=== PATIENT | female | born 1975 | race Caucasian/White ===

== ENCOUNTER 2017-10-20 13:16 | Inpatient (IN) | payer OTHER ==
--- NOTE | 2017-10-20 15:50 | EDPHY ---
H & P Time Seen by Provider: 10/20/17 15:02 HPI/ROS: HPI Bipolar, manic. 42-year-old female by private vehicle. This patient has a history of PTSD and bipolar disorder. She was recently admitted to the [facility] in [place] and was there for approximately 2 weeks. She was discharged about 3 days ago. She was prescribed her standard psychiatric medications but has not been able to fill these prescriptions at the pharmacy she was instructed to go to. She drove from [place] up to [place] because the pharmacist told her she could get good care here. She currently is not tied in with our system in [place]. She states that she is not taking her medications in 3 days. She denies suicidal or homicidal thoughts. ROS: Constitutional: No fever, no chills. No weakness. Eyes: No discharge. No changes in vision. ENT: No sore throat. No nasal congestion or rhinorrhea. Respiratory: No cough. No shortness of breath. Cardiac: No chest pain, no palpitations. Gastrointestinal: No abdominal pain, no vomiting, no diarrhea. Genitourinary: No hematuria. No dysuria or increased frequency with urination. Musculoskeletal: No back pain. No neck pain. No myalgias or arthralgias. Skin: No rashes. Neurological: No headache. No focal weakness or altered sensation. Past medical history: Bipolar, PTSD, major depression, prior suicide attempts. Social history: She is originally from [place]. She has an 18-year-old son. She smokes occasionally. She denies alcohol. Physical Exam: General Appearance: Alert, very manic, pressured speech, tangential thoughts. Needs constant redirection, then this patient is responding to questions appropriately and in full sentences. This patient appears well-hydrated and well-nourished. Eyes: Pupils equal and round no pallor or injection. No lid edema, erythema or injection. Respiratory: There are no retractions, lungs are clear to auscultation with good air movement bilaterally. Cardiovascular: Regular rate and rhythm. No murmur. Gastrointestinal: Moderately obese habitus. Abdomen is soft and nontender, no masses, bowel sounds normal. No focal tenderness at McBurney's point. No Douglas sign. Neurological: Motor sensory function is grossly intact. Cranial nerves are normal. Gait is normal. Skin: Warm and dry, no rashes. Musculoskeletal: Neck is supple and nontender. Extremities are symmetrical. All joints range without pain or impingement. Psychiatric: No agitation. No depression. Database: EKG: Imaging: Procedures: Emergency department course: Triage vital signs reviewed. She is moderately hypertensive. Tachycardic at 120. Vital signs otherwise normal. After my evaluation she was placed on a detainer secondary to her manic state/acute psychosis. We have obtained her medication list and will medicate her appropriately. Behavioral Health is aware. Appropriate blood work sent. 5:30 p.m., patient evaluated by TLC. They will admit this patient for stabilization on her medications. 6:30 p.m., patient placed on an M1 hold officially. Waiting admission. 10:00 p.m., the patient has been accepted for transfer to [address] [place] [address]. Accepting physician is the on-call psychiatrist. I have filled out the appropriate transfer paperwork. The patient's remaining emergency department course under my care has been unremarkable. The patient was transferred in stable condition to [address] [place] [address]. Differential Diagnosis: The differential diagnosis on this patient includes but is not limited to bipolar with acute manic state, acute psychosis, sympathomimetic toxidrome. This represents a partial list of diagnoses considered. These considerations are based on history, physical exam, past history, reassessment and diagnostic testing. Smoking Status: Never smoked Constitutional: Initial Vital Signs Temperature (C) 37.0 C 10/20/17 14:08 Heart Rate 120 H 10/20/17 14:08 Respiratory Rate 24 H 10/20/17 14:08 Blood Pressure 150/81 H 10/20/17 14:08 O2 Sat (%) 94 10/20/17 14:08 O2 Delivery Mode Room Air Allergies/Adverse Reactions: haloperidol [From Haldol] Allergy (Verified 10/20/17 14:12) lamotrigine [From Lamictal] Allergy (Verified 10/20/17 14:12) morphine Allergy (Verified 10/20/17 14:13) Home Medications: Medication Instructions Recorded Gabapentin 800 mg PO DAILY 10/20/17 Gabapentin [Gabapentin 800 mg] 1,200 mg PO BID@14,21 10/20/17 Lidocaine 5% [Lidocaine 5% Oint] 1 avani TP Q6 PRN 10/20/17 Loratadine [Claritin 10 mg] 10 mg PO DAILY 06/15/18 Lurasidone HCl [Latuda] 40 mg PO DAILY@18 10/20/17 Prazosin HCl 4 mg PO HS 10/20/17 SUMAtriptan [Imitrex 50 MG (*)] 50 mg PO Q2H PRN 10/20/17 Topiramate [Topamax 100MG (*)] 50 mg PO BID 10/20/17 busPIRone [Buspar (*)] 15 mg PO TID 10/20/17 traZODone [traZODONE 100MG (*)] 100 mg PO HS PRN 10/20/17 Medical Decision Making - Data Points Laboratory Results: Laboratory Results 10/20/17 16:05 10/20/17 16:05 10/20/17 10/20/17 10/20/17 16:05 16:05 16:05 WBC 8.36 10^3/uL 10^3/uL (3.80-9.50) RBC 3.84 10^6/uL L 10^6/uL (4.18-5.33) Hgb 11.4 g/dL L g/dL (12.6-16.3) Hct 33.8 % L % (38.0-47.0) MCV 88.0 fL fL (81.5-99.8) MCH 29.7 pg pg (27.9-34.1) MCHC 33.7 g/dL g/dL (32.4-36.7) RDW 13.4 % % (11.5-15.2) Plt Count 283 10^3/uL 10^3/uL (150-400) MPV 10.0 fL fL (8.7-11.7) Neut % (Auto) 67.6 % % (39.3-74.2) Lymph % (Auto) 21.2 % % (15.0-45.0) Pitt % (Auto) 9.2 % % (4.5-13.0) Eos % (Auto) 1.6 % % (0.6-7.6) Baso % (Auto) 0.2 % L % (0.3-1.7) Nucleat RBC Rel Count 0.0 % % (0.0-0.2) Absolute Neuts (auto) 5.65 10^3/uL 10^3/uL (1.70-6.50) Absolute Lymphs (auto) 1.77 10^3/uL 10^3/uL (1.00-3.00) Absolute Monos (auto) 0.77 10^3/uL 10^3/uL (0.30-0.80) Absolute Eos (auto) 0.13 10^3/uL 10^3/uL (0.03-0.40) Absolute Basos (auto) 0.02 10^3/uL 10^3/uL (0.02-0.10) Absolute Nucleated RBC 0.00 10^3/uL 10^3/uL (0-0.01) Immature Gran % 0.2 % % (0.0-1.1) Immature Gran # 0.02 10^3/uL 10^3/uL (0.00-0.10) Sodium 143 mEq/L mEq/L (135-145) Potassium 3.8 mEq/L mEq/L (3.3-5.0) Chloride 109 mEq/L mEq/L (97-110) Carbon Dioxide 17 mEq/l L mEq/l (22-31) Anion Gap 17 mEq/L H mEq/L (8-16) BUN 9 mg/dL mg/dL (7-23) Creatinine 0.9 mg/dL mg/dL (0.6-1.0) Estimated GFR > 60 Glucose 93 mg/dL mg/dL (70-100) Calcium 9.1 mg/dL mg/dL (8.5-10.4) Beta HCG, Qual NEGATIVE Urine Opiates Screen Urine Barbiturates Ur Phencyclidine Scrn Ur Amphetamine Screen U Benzodiazepines Scrn Urine Cocaine Screen U Marijuana (THC) Screen Ethyl Alcohol < 10 mg/dL mg/dL (0-10) 10/20/17 16:00 WBC RBC Hgb Hct MCV MCH MCHC RDW Plt Count MPV Neut % (Auto) Lymph % (Auto) Pitt % (Auto) Eos % (Auto) Baso % (Auto) Nucleat RBC Rel Count Absolute Neuts (auto) Absolute Lymphs (auto) Absolute Monos (auto) Absolute Eos (auto) Absolute Basos (auto) Absolute Nucleated RBC Immature Gran % Immature Gran # Sodium Potassium Chloride Carbon Dioxide Anion Gap BUN Creatinine Estimated GFR Glucose Calcium Beta HCG, Qual Urine Opiates Screen NEGATIVE (NEGATIVE) Urine Barbiturates NEGATIVE (NEGATIVE) Ur Phencyclidine Scrn NEGATIVE (NEGATIVE) Ur Amphetamine Screen NEGATIVE (NEGATIVE) U Benzodiazepines Scrn NEGATIVE (NEGATIVE) Urine Cocaine Screen NEGATIVE (NEGATIVE) U Marijuana (THC) Screen NEGATIVE (NEGATIVE) Ethyl Alcohol Medications Given: Trazodone HCl (Trazodone) 100 mg PO HS ALBER Stop: 04/18/18 20:59 Last Admin: 10/20/17 16:12 Dose: 100 mg Discontinued Medications Gabapentin (Neurontin) 800 mg PO EDNOW ONE Stop: 10/20/17 15:56 Last Admin: 10/20/17 16:12 Dose: 800 mg Departure - Departure Disposition: [facility] IP Clinical Impression: Bipolar 1 disorder, Manic behavior Referrals: NONE *PRIMARY CARE P,. [Primary Care Provider] - As per Instructions
[2017-10-20] MEDS ORDERED: GABAPENTIN 100 MG CAP PO ONE (15:55)
[2017-10-20] MEDS ORDERED: traZODone 50 MG TAB ONE (15:56)
[2017-10-20 16:11] LABS: PLATELET COUNT 283 10^3/uL (150-400)
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
[2017-10-20] MEDS ORDERED: traZODone 100 MG TAB PO SCH (21:00)
--- NOTE | 2017-10-20 21:08 | ASMTTCLDSP ---
TLC Discharge Disposition Disposition: Answers: Admit Disposition Notes: Notes: In consultation with ED physician, Santos Vásquez, and on-call psychiatrist, Scott Black MD, both concurred that pt does appear to meet 27-65 criteria requiring inpatient hospitalization as pt does appear to be gravely disabled due to a mental illness condition. Discharge Concerns/Recommendations: Notes: PT will be admitted to and per MA request will be notified at with PT's dispo and placement. Was patient given the Answers: Yes Inpatient [facility] Prohibited Belongings List while in the ED? For inpatient Scott Black MD admission, the following psychiatrist agreed to accept patient for admission to [facility] ([facility]): Type of Hold: Answers: M1/72-hour Hold Hold initiated by: Answers: ED Physician Date Signed: 10/20/2017 09:07 PM Electronically Signed By:Gopal Beyer
[2017-10-20] MEDS ORDERED: LORazepam 1 MG TAB PO ONE (22:00)
[2017-10-20] MEDS ORDERED: NICOTINE POLACRILEX 2 MG GUM B PRN (23:27)
[2017-10-20] MEDS ORDERED: MAG HYDROX/AL HYDROX/SIMETH 30 ML UDCUP PO PRN (23:27)
[2017-10-20] MEDS ORDERED: ACETAMINOPHEN 325 MG TAB PO PRN (23:27)
[2017-10-20] MEDS ORDERED: MAGNESIUM HYDROXIDE 30 ML UDCUP PO PRN (23:27)
[2017-10-20] MEDS ORDERED: MELATONIN 3 MG TAB PO PRN (23:45)
[2017-10-21] MEDS ORDERED: GABAPENTIN 400 MG CAP PO ONE (01:00)
[2017-10-21] MEDS ORDERED: PRAZOSIN HCL 1 MG CAP PO ONE (01:00)
[2017-10-21] MEDS: NAPROXEN SODIUM 220 MG TAB PO PRN ×2 (01:03→14:15)
[2017-10-21] MEDS: TOPIRAMATE 100 MG TAB PO SCH ×2 (08:22→19:36)
[2017-10-21] MEDS: GABAPENTIN 400 MG CAP PO SCH ×3 (08:22→19:37)
[2017-10-21] MEDS: CETIRIZINE 10 MG TAB PO SCH (08:23)
[2017-10-21] MEDS: busPIRone 15 MG TAB PO SCH ×3 (08:23→19:41)
--- NOTE | 2017-10-21 13:30 | PDHOSCONS ---
History and Physical - Chief Complaint medical management - History of Present Illness 42-year-old female with a history of PTSD and bipolar disorder who was recently admitted to the [place] in [place] and was there for approximately 2 weeks. She was discharged about 3 days ago. She was prescribed her standard psychiatric medications but has not been able to fill these prescriptions at the pharmacy she was instructed to go to. She presented to the E.D. yesterday and given her manic sx's an M1 hold was placed and she was admitted to behavioral health. In the E.D. she was noted to have HTN and Tachycardia. Past medical history: Bipolar, PTSD, major depression, prior suicide attempts. Social history: She is originally from [place]. She has an 18-year-old son. She smokes occasionally. She denies alcohol. FmHx: non contributory History Information - Allergies/Home Medication List Allergies/Adverse Reactions: haloperidol [From Haldol] Allergy (Verified 10/20/17 14:12) lamotrigine [From Lamictal] Allergy (Verified 10/20/17 14:12) morphine Allergy (Verified 10/20/17 14:13) Home Medications: Gabapentin 800 mg PO DAILY 10/20/17 [Last Taken Unknown] Gabapentin [Gabapentin 800 mg] 1,200 mg PO BID@10/20/17 [Last Taken Unknown] Lidocaine 5% [Lidocaine 5% Oint] 1 avani TP Q6 PRN 10/20/17 [Last Taken Unknown] Loratadine [Claritin 10 mg] 10 mg PO DAILY 10/20/17 [Last Taken Unknown] Lurasidone HCl [Latuda] 40 mg PO DAILY@18 10/20/17 [Last Taken Unknown] Prazosin HCl 4 mg PO HS 10/20/17 [Last Taken Unknown] SUMAtriptan [Imitrex 50 MG (*)] 50 mg PO Q2H PRN 10/20/17 [Last Taken Unknown] Topiramate [Topamax 100MG (*)] 50 mg PO BID 10/20/17 [Last Taken Unknown] busPIRone [Buspar (*)] 15 mg PO TID 10/20/17 [Last Taken Unknown] traZODone [traZODONE 100MG (*)] 100 mg PO HS PRN 10/20/17 [Last Taken Unknown] I have personally reviewed and updated: medical history, social history - Social History Smoking Status: Never smoked Review of Systems Review of Systems: ROS: 10pt was reviewed & negative except for what was stated in HPI & below Physical Exam Physical Exam: Temp Pulse Resp BP Pulse Ox 36.6 C 82 16 126/86 H 99 10/20/17 23:08 10/20/17 23:08 10/20/17 23:08 10/20/17 23:08 10/20/17 23:08 Constitutional: no apparent distress Eyes: PERRL, EOMI Ears, Nose, Mouth, Throat: moist mucous membranes, hearing normal Cardiovascular: regular rate and rhythym, No edema Respiratory: no respiratory distress, no rales or rhonchi Gastrointestinal: normoactive bowel sounds Skin: warm Neurologic: AAOx3 Psychiatric: anxious, No interacting appropriately Lymph, Heme, Immunologic: No petechiae Lab Data & Imaging Review 10/20/17 16:05 10/20/17 16:05 WBC 8.36 10^3/uL (3.80-9.50) 10/20/17 16:05 RBC 3.84 10^6/uL (4.18-5.33) L 10/20/17 16:05 Hgb 11.4 g/dL (12.6-16.3) L 10/20/17 16:05 Hct 33.8 % (38.0-47.0) L 10/20/17 16:05 MCV 88.0 fL (81.5-99.8) 10/20/17 16:05 MCH 29.7 pg (27.9-34.1) 10/20/17 16:05 MCHC 33.7 g/dL (32.4-36.7) 10/20/17 16:05 RDW 13.4 % (11.5-15.2) 10/20/17 16:05 Plt Count 283 10^3/uL (150-400) 10/20/17 16:05 MPV 10.0 fL (8.7-11.7) 10/20/17 16:05 Neut % (Auto) 67.6 % (39.3-74.2) 10/20/17 16:05 Lymph % (Auto) 21.2 % (15.0-45.0) 10/20/17 16:05 [place] % (Auto) 9.2 % (4.5-13.0) 10/20/17 16:05 Eos % (Auto) 1.6 % (0.6-7.6) 10/20/17 16:05 Baso % (Auto) 0.2 % (0.3-1.7) L 10/20/17 16:05 Nucleat RBC Rel Count 0.0 % (0.0-0.2) 10/20/17 16:05 Absolute Neuts (auto) 5.65 10^3/uL (1.70-6.50) 10/20/17 16:05 Absolute Lymphs (auto) 1.77 10^3/uL (1.00-3.00) 10/20/17 16:05 Absolute Monos (auto) 0.77 10^3/uL (0.30-0.80) 10/20/17 16:05 Absolute Eos (auto) 0.13 10^3/uL (0.03-0.40) 10/20/17 16:05 Absolute Basos (auto) 0.02 10^3/uL (0.02-0.10) 10/20/17 16:05 Absolute Nucleated RBC 0.00 10^3/uL (0-0.01) 10/20/17 16:05 Immature Gran % 0.2 % (0.0-1.1) 10/20/17 16:05 Immature Gran # 0.02 10^3/uL (0.00-0.10) 10/20/17 16:05 Sodium 143 mEq/L (135-145) 10/20/17 16:05 Potassium 3.8 mEq/L (3.3-5.0) 10/20/17 16:05 Chloride 109 mEq/L (97-110) 10/20/17 16:05 Carbon Dioxide 17 mEq/l (22-31) L 10/20/17 16:05 Anion Gap 17 mEq/L (8-16) H 10/20/17 16:05 BUN 9 mg/dL (7-23) 10/20/17 16:05 Creatinine 0.9 mg/dL (0.6-1.0) 10/20/17 16:05 Estimated GFR > 60 10/20/17 16:05 Glucose 93 mg/dL (70-100) 10/20/17 16:05 Calcium 9.1 mg/dL (8.5-10.4) 10/20/17 16:05 Beta HCG, Qual NEGATIVE 10/20/17 16:05 Urine Opiates Screen NEGATIVE (NEGATIVE) 10/20/17 16:00 Urine Barbiturates NEGATIVE (NEGATIVE) 10/20/17 16:00 Ur Phencyclidine Scrn NEGATIVE (NEGATIVE) 10/20/17 16:00 Ur Amphetamine Screen NEGATIVE (NEGATIVE) 10/20/17 16:00 U Benzodiazepines Scrn NEGATIVE (NEGATIVE) 10/20/17 16:00 Urine Cocaine Screen NEGATIVE (NEGATIVE) 10/20/17 16:00 U Marijuana (THC) Screen NEGATIVE (NEGATIVE) 10/20/17 16:00 Ethyl Alcohol < 10 mg/dL (0-10) 10/20/17 16:05 Assessment & Plan Assessment: Bipolar 1 disorder (Acute) Manic behavior (Acute) HTN Migraines Metabolic Acidosis Right knee injury, present on admission, cont with brace. MRI as an outpatient Plan: Psych mgmt per primary repeat labs in am. Thank you for this consult, we will cont to follow Plan: #Diana with psychosis possible in a pt with chronic Bipolar disorder -mgmt per psych #HTN: BP is now better -monitor for now #Tachcyardia -resolved #Anemia -recheck labs in a.m #Metabolic Acidosis -recheck labs in a.m. #Migraines Plan: Per above labs in a.m. current meds reviewed, continue as is. Thank you for this consultation, we will follow along with you.
[2017-10-21] MEDS: SUMAtriptan 50 MG TAB PO PRN ×2 (14:15→16:16)
--- NOTE | 2017-10-21 15:27 | ASMTBHMTP ---
Master Treatment Plan Master Treatment Plan Answers: Mood Instability with for: Psychosis Date: 10/21/2017 Diagnosis on Admission: Bipolar I Disorder Expected length of stay: 5-7 days. Reason for admission: Notes: Patient is a 42 year old female. Patient is estranged from her family, a disabled Vetrian with PTSD adn Bipolar I Disorder with a history of suicide attempts. Patient self presented to the [place] [facility] with manic symptoms, tangential thinking, flight of ideas and paranoid. Patient's stated presenting problems: Notes: Because I did't have my medications. Patient was feeling overwhelmed with her situation after leaving the [facility] where she was living and getting services. Patient's goals for treatment: Notes: Mood Stability, medication magangement, sleeping 6-8 hours a night, attending groups and have a good discharge plan. Patient's strengths: Notes: Patient likes to read and educate herself." Identify supports outside of hospital: Notes: I have none, I have no living relatives. Patient reports that she was raised by her grandmother and she is now not around to care for her. Discharge criteria: Notes: Patient will demonstrate mood stability by discharge. Initial disposition plan/considerations: Notes: Patient would like to get services at [facility] in [place]. Patient has SSDI and [facility]. Master Treatment Plan Required Signatures Psychiatrist signature: Answers: Scott Black MD: RN on-shift signature: Answers: RN: Patient signature: Answers: Patient: Date Signed: 10/21/2017 03:26 PM Electronically Signed By:Blanca Leslie
--- NOTE | 2017-10-21 15:31 | ASMTBHDC ---
Notes Note: Notes: Patient has been out in the milieu, staff reports that she is still a 5/10 on the suicide ideation scale. Patient slept 6 hours last night. Patient continues to be tangential, have flight of ideas, but is easily redirected. Patient's hold is up on 10/23/2017 at 18:07. Date Signed: 10/21/2017 03:30 PM Electronically Signed By:Blanca Leslie
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
[2017-10-21] MEDS: LURASIDONE HCL 40 MG TAB PO SCH (16:15)
[2017-10-21] MEDS: PRAZOSIN HCL 1 MG CAP PO SCH (19:37)
[2017-10-21] MEDS: LORazepam 0.5 MG TAB PO PRN (22:39)
[2017-10-21] MEDS: traZODone 100 MG TAB PO PRN (22:44)
[2017-10-22] MEDS: OLANZapine DISINTEGR 5 MG TAB PO PRN ×2 (02:38→15:40)
[2017-10-22] MEDS: LORazepam 0.5 MG TAB PO PRN ×3 (02:38→13:13)
[2017-10-22] MEDS: NAPROXEN SODIUM 220 MG TAB PO PRN ×3 (06:36→15:40)
[2017-10-22] MEDS: GABAPENTIN 400 MG CAP PO SCH ×3 (08:13→19:47)
[2017-10-22] MEDS: TOPIRAMATE 100 MG TAB PO SCH ×2 (08:13→19:47)
[2017-10-22] MEDS: busPIRone 15 MG TAB PO SCH ×3 (08:13→19:48)
[2017-10-22] MEDS: CETIRIZINE 10 MG TAB PO SCH (08:13)
[2017-10-22] MEDS: SUMAtriptan 50 MG TAB PO PRN ×3 (13:13→20:32)
--- NOTE | 2017-10-22 14:50 | SOAPPROG ---
SOAP Progress Note Assessment/Plan: Assessment: 42 yo with h/o tate, anxiety and possible PTSD. She was receiving services through [facility] in [place], but claims she fell on their property and the staff are "mad" at her and don't want to treat her anymore. She presented to ED in [place] after not taking meds x 3 days and was admitted to on M1 for grave disability d/t manic sxs. Plan: 10/22/17 14:41 1. Patient reports "a lot of anxiety" despite taking 3 different psychotropic meds for anxiety. 2. Patient had "bad dreams" that kept her awake most of the night. 3. Patient says there is "a lot going on in my life right now" that is making her anxiety and insomnia worse. 4. Patient still paranoid that [facility] doesn't want to help her and is "mad" at her. She wants to get connected with services in [place], even though she knows there are no services. 5. Wants to continue on her current meds. MD did discuss the risks, SE's and potential adverse drug interactions from the multiple psychotropics meds she is taking. Patient verbalized her understanding of the risks associated with imprudent polypharmacy. MD reminded patient that many of her meds target the same set of symptoms. MD advised consolidating some meds and optimizing treatment with fewer agents and possibly adding some non-pharmacologic interventions, especially therapy, exercise, biofeedback and/or relaxation techniques to cope with anxiety and improve her ability to tolerate stress. Patient said she didn't want to make any meds changes at this time, but would be willing to consider therapy as an outpatient. 6. Patient took Aleve, Imitrex yesterday for back pain, knee pain and HUYNH. She did not complain of pain sxs or HUYNH when MD spoke to her today. 7. Patient needs f/u services. She will also need housing assistance referrals. Subjective: Met with patient, reviewed chart and d/w staff. Patient very polite, pleasant and cooperative. She continues to exhibit pressured speech and endorse racing thoughts. She slept 3.5 hrs last night. Staff report she had increased goal- directed activity, including showering, attending to hygiene. Patient perseverates on how she was treated at [facility] and by the staff at [facility]. She claims they "didn't help her" and were treating her badly b/c she fell on their property, but can't provide any details of why this was the case. Patient denies any SI/HI, no intent or plan to hurt herself or anyone else. She denies hallucinations. Objective: Vital Signs Temp Pulse Resp BP Pulse Ox 36.3 C 98 16 130/80 H 97 10/22/17 02:10/22/17 02:17 10/22/17 02:17 10/22/17 02:10/22/17 02:17 MSE: Affect: Anxious, irritable when talking about [facility] Mood: "So-so" TP: Tangential, perseverative TC: Denies any SI/HI, no AH/VH, some paranoid delusions about [facility] Insight/Judgment: Poor - Time Spent With Patient Time Spent With Patient: 20" - Pending Discharge Pending Discharge Within 24 Hours: No Pending Discharge Within 48 Hours: No ICD10 Worksheet Patient Problems: Problems Problem Status Onset Bipolar 1 disorder Acute Manic behavior Acute
[2017-10-22] MEDS: LURASIDONE HCL 40 MG TAB PO SCH (15:40)
[2017-10-22] MEDS: traZODone 100 MG TAB PO PRN (19:47)
[2017-10-22] MEDS: PRAZOSIN HCL 1 MG CAP PO SCH (19:47)
[2017-10-23] MEDS: LORazepam 0.5 MG TAB PO PRN ×3 (05:10→16:04)
[2017-10-23] MEDS: TOPIRAMATE 100 MG TAB PO SCH ×2 (08:29→21:11)
[2017-10-23] MEDS: busPIRone 15 MG TAB PO SCH (08:29)
[2017-10-23] MEDS: CETIRIZINE 10 MG TAB PO SCH (08:29)
[2017-10-23] MEDS: GABAPENTIN 400 MG CAP PO SCH (08:29)
--- NOTE | 2017-10-23 09:32 | PDMN ---
Medical Necessity Medical necessity: [id number]- IP other psychotic disorder- delusional disorders - paranoia- 3 days- PT on M1 hold for grave disability , d/t manic sxs. PT with hx of tate, anxiety, PTSD.
--- NOTE | 2017-10-23 15:35 | SOAPPROG ---
SOAP Progress Note Assessment/Plan: Assessment: Bipolar I disorder. Current tate. No improvement noted. (see subjective/ objective note). Patient could benefit from continued inpatient hospitalization for crisis stabilization, safety, and medication evaluation. Plan: Review psychotropic medication treatment informed consent and recommendations. After reviewing risk and benefits, patient agrees to continue medications with the following changes. Medication changes include increase Latuda to 80 mg po QD, increase Buspar to 20 mg po TID, increase Gabapentin to 900 mg po TID, increase Topamax to 100 mg po BID, and increase Trazodone to 200 mg po QHS. No other medication changes at this time as more time is needed to determine ongoing tolerability and efficacy. Plan is to continue to observe patient for response and side effects from medications, and ongoing monitoring and evaluation. Next steps are for patient to meet with hospice care consultant to plan a safe discharge plan and establish outpatient services for ongoing treatment. Consider discharge on Monday if patient is in stable condition, safe, and has a safe discharge plan. PSYCHOTROPIC MEDICATION TREATMENT INFORMED CONSENT and RECOMMENDATIONS: Review nature of condition, diagnosis, and prognosis. Review nature and purpose of psychotropic medication treatment. Review type of psychotropic medications being ordered. Review risk and benefits of psychotropic medication treatment. Review probable length of time patient will need to take medications. Review risk and benefits of not undergoing psychotropic medication treatment. Review alternative treatments to psychotropic medications. Review psychotropic medications contraindications, drug-drug interactions, side effects, and importance of reporting any side effects to a psychiatric provider or nurse during inpatient hospitalization, and upon discharge to patients psychiatric outpatient provider, primary care provider, or other health multi care technician. Review importance of asking a nurse, psychiatric provider, or primary care provider any questions or problems concerning the psychotropic medications. Verify patient understands the information that has been provided, and understands, accepts, and agrees to psychotropic medications. Review patients safety plan and importance of patient to report to staff while hospitalized if patient is ever a danger to self/others, or unable to care for self, and upon discharge, the importance for patient to contact [facility] or [facility], or go to the nearest emergency room, if patient is ever a danger to self/others, or unable to care for self. Recommend that upon discharge patient establish medication management treatment with a psychiatric provider, establishes routine therapy appointments, and follow-up with primary care provider. Verify patient understands and agrees to these recommendations. 10/23/17 15:35 Subjective: Following up with patient for evaluation of tate, depression, PTSD, and safety. Patient reports she feels like she is going one hundred miles per hour , cant slow down. Patient stats she feels paranoid, sad, tearful, talking too much, and mind is all over the place. Patient reports mood as agitated, irritable, and anxious. Patient reports she slept one-hour last night, reports mood as okay, states she is tolerating current medications with no report of side effects, is attending and engaging in groups, denies SI/HI, A/V hallucinations, delusions, and expressions current psychiatric symptoms as anxiety, agitation, irritability, and decreased need for sleep. Patient requests to be voluntary for continued psychiatric hospitalization. Objective: Vital Signs Temp Pulse Resp BP Pulse Ox 36.3 C 92 16 126/62 H 96 10/23/17 05:24 10/23/17 05:24 10/23/17 05:24 10/23/17 05:24 10/23/17 05:24 Consulted with treatment team staff for update on patients progress in treatment. Nursing reports patient slept 8.5 hours, is tolerating medications with no report of SEs, denies SI/HI. Patient is currently not improving with current medications. Patient continues to exhibit symptoms of tate. Symptoms continue the same in frequency and intensity, and no improvement is noted. The patient is a well nourished, well developed, female, looking older than chronological age. Attire is appropriate. Grooming status is disheveled. Ambulation is independent. Gait is normal and coordinated. Posture is tense. Eye contact is inappropriate and excessive. Motor activity is overactive and dramatic. Attitude is cooperative. Patient appears distractible and does not relate well to this interviewer. Language production is spontaneous. Rate is rapid and pressured. Latency of response is shortened, with irritable tone, and appropriate volume, and amount is hypertalkative. Articulation is clear. Patient reports mood as euphoric with congruent affect. Patients thought process is non-linear and illogical, with loose associations, tangential thought. Patient does not report suicidal/homicidal thoughts, ideas, or plans. Patient denies auditory, visual hallucinations. Patient denies delusions. Patient does not appear to be attending to internal stimuli. ORIENTATION: x3. ATTENTION/CONCENTRATION: poor. INSIGHT: poor. JUDGMENT: is poor. COGNITIVE: no evidence of, evidence of gross cognitive dysfunction at any point during the interview. no evidence of apparent dysfunction in recent or remote memory noted - Time Spent With Patient Time Spent With Patient: 30 minutes, met with patient individually. - Pending Discharge Pending Discharge Within 24 Hours: No Pending Discharge Within 48 Hours: No ICD10 Worksheet Patient Problems: Problems Problem Status Onset Bipolar 1 disorder Acute Manic behavior Acute
[2017-10-23] MEDS: busPIRone 10 MG TAB PO SCH ×2 (16:04→21:10)
[2017-10-23] MEDS: GABAPENTIN 300 MG CAP PO SCH ×3 (16:04→21:10)
--- NOTE | 2017-10-23 16:53 | ASMTBHDC ---
Notes Note: Notes: Follow Up: [facility] [address], [address]nd [place], [address] O# [phone] Intake Appointment: October 27 @ 14:30. Additional Resources: [facility] Location: [address] [place] [address] [phone] Coordinated Entry must be done prior to discharge [facility] [address], [place], [address] O#[phone] [facility] [address] [place] [address] [address] [facility] [address], [place], [address] O# [facility] 28[facility]11 walk-in clinic [address] [place], [address] O# [phone] Suicide Prevention Hotline O# Date Signed: 10/23/2017 04:52 PM Electronically Signed By:Jeana Zelaya
[2017-10-23] MEDS: LURASIDONE HCL 40 MG TAB PO SCH (17:40)
[2017-10-23] MEDS: traZODone 100 MG TAB PO SCH (21:11)
[2017-10-23] MEDS: PRAZOSIN HCL 1 MG CAP PO SCH (21:11)
[2017-10-24] MEDS: LORazepam 0.5 MG TAB PO PRN ×4 (03:43→16:41)
[2017-10-24] MEDS: NAPROXEN SODIUM 220 MG TAB PO PRN ×3 (03:43→16:41)
[2017-10-24] MEDS: GABAPENTIN 300 MG CAP PO SCH ×3 (08:19→20:37)
[2017-10-24] MEDS: busPIRone 10 MG TAB PO SCH ×3 (08:19→20:37)
[2017-10-24] MEDS: TOPIRAMATE 100 MG TAB PO SCH ×2 (08:19→20:39)
[2017-10-24] MEDS: CETIRIZINE 10 MG TAB PO SCH (08:19)
[2017-10-24] MEDS: SUMAtriptan 50 MG TAB PO PRN (10:48)
--- NOTE | 2017-10-24 15:47 | SOAPPROG ---
SOAP Progress Note Assessment/Plan: Assessment: Bipolar I disorder. Stable. (see subjective/objective note). Patient could benefit from continued inpatient hospitalization for crisis stabilization, safety, and medication evaluation. Plan: Review psychotropic medication treatment informed consent and recommendations. No medication changes at this time as more time is needed to determine ongoing tolerability and efficacy. Plan is to continue to observe patient for response and side effects from medications, and ongoing monitoring and evaluation. Next steps are for patient to meet with adult care provider to plan a safe discharge plan and establish outpatient services for ongoing treatment. Consider discharge on Monday if patient is in stable condition, safe, and has a safe discharge plan. PSYCHOTROPIC MEDICATION TREATMENT INFORMED CONSENT and RECOMMENDATIONS: Review nature of condition, diagnosis, and prognosis. Review nature and purpose of psychotropic medication treatment. Review type of psychotropic medications being ordered. Review risk and benefits of psychotropic medication treatment. Review probable length of time patient will need to take medications. Review risk and benefits of not undergoing psychotropic medication treatment. Review alternative treatments to psychotropic medications. Review psychotropic medications contraindications, drug-drug interactions, side effects, and importance of reporting any side effects to a psychiatric provider or nurse during inpatient hospitalization, and upon discharge to patients psychiatric outpatient provider, primary care provider, or other health home care coordinator. Review importance of asking a nurse, psychiatric provider, or primary care provider any questions or problems concerning the psychotropic medications. Verify patient understands the information that has been provided, and understands, accepts, and agrees to psychotropic medications. Review patients safety plan and importance of patient to report to staff while hospitalized if patient is ever a danger to self/others, or unable to care for self, and upon discharge, the importance for patient to contact [facility] or [facility], or go to the nearest emergency room, if patient is ever a danger to self/others, or unable to care for self. Recommend that upon discharge patient establish medication management treatment with a psychiatric provider, establishes routine therapy appointments, and follow-up with primary care provider. Verify patient understands and agrees to these recommendations. 10/24/17 15:47 10/24/17 15:48 Subjective: Following up with patient for evaluation of tate, depression, PTSD, and safety. Patients goal is to stay in [place], and her goal fo hospitalization is to get medications straightened out and get outpatient services established. Patient reports she is a little stressed today and reports some mild anxiety. Patient states she is taking medications as prescribed, tolerating medications with no report of side effects. Patient reports no suicidal ideation and reports last time she had any SI was prior to her admission. Patient reports she would like to continue current medications at current dosing. Objective: Vital Signs Temp Pulse Resp BP Pulse Ox 36.3 C 111 H 16 126/76 H 94 10/23/17 05:24 10/24/17 04:33 10/24/17 04:33 10/24/17 04:33 10/24/17 04:33 Consulted with treatment team staff for update on patients progress in treatment. Nurses report patient slept 8 hours, is taking medications as prescribed with no report of side effects, reports no SI and reports mild anxiety. Mild anxiety expressed. Patient is currently improving with current medications. Patient shows treatment response as of today. The patient presents casually dressed and with good hygiene, and looks stated age. Patient is sitting, posture is upright, and position is relaxed. Patient appears awake, alert, and responds appropriately and reasonably during interview. Patient is engaged, relates well to interviewer, and emotional facial expression is appropriate to situation and changes appropriately with topic. Patient is cooperative, makes comfortable eye contact, and movements are voluntary, deliberate, coordinated, and smooth and even with no inappropriate movements. Patient makes laryngeal sounds effortlessly and shares conversation appropriately; pace of conversation is appropriate, and stream of talking is fluent; articulation is clear and understandable; word choice is effortless and appropriate for education level; completes sentences, occasionally pausing to think; rate and volume are appropriate for interview and setting. Patient reports mood as euthymic. Patients affect is stable with full variable range, congruent with mood, and appropriate to speech and circumstances. Patient has linear and logical thinking, with no loose associations, tangential thought, thought blocking, concrete thinking, or any other signs of formal thought disorder. Patient denies suicidal and homicidal ideation, and denies hallucinations and delusions. Patient appears to be a reliable historian with sound judgement and good insight into current condition. Patient has no apparent dysfunction in recent or remote memory noted , and no evidence of gross cognitive dysfunction noted at any point during the interview. - Time Spent With Patient Time Spent With Patient: 30 minutes, met with patient individually. - Pending Discharge Pending Discharge Within 24 Hours: Yes Pending Discharge Within 48 Hours: No Pending Discharge Date: 10/25/17 Pending Discharge Time: 11:00 ICD10 Worksheet Patient Problems: Problems Problem Status Onset Bipolar 1 disorder Acute Manic behavior Acute
[2017-10-24] MEDS: LIDOCAINE 4% 15 GM CREAM TP PRN (18:13)
[2017-10-24] MEDS: LURASIDONE HCL 40 MG TAB PO SCH (18:41)
[2017-10-24] MEDS: traZODone 100 MG TAB PO SCH (20:37)
[2017-10-24] MEDS: PRAZOSIN HCL 1 MG CAP PO SCH (20:38)
[2017-10-25] MEDS: NAPROXEN SODIUM 220 MG TAB PO PRN (03:32)
[2017-10-25] MEDS: LORazepam 0.5 MG TAB PO PRN (03:32)
[2017-10-25] MEDS: LIDOCAINE 4% 15 GM CREAM TP PRN (03:33)
[2017-10-25] MEDS: SUMAtriptan 50 MG TAB PO PRN (03:35)
[2017-10-25 06:32] VITALS: BP 120/68
[2017-10-25] MEDS: busPIRone 10 MG TAB PO SCH (08:30)
[2017-10-25] MEDS: GABAPENTIN 300 MG CAP PO SCH (08:31)
[2017-10-25] MEDS: CETIRIZINE 10 MG TAB PO SCH (08:31)
[2017-10-25] MEDS: TOPIRAMATE 100 MG TAB PO SCH (08:32)
--- NOTE | 2017-10-25 19:00 | BDS ---
[f rep st] BEHAVIORAL HEALTH DISCHARGE SUMMARY REASON FOR ADMISSION: Per ED note dated 10/20/2017, a 42-year-old female arrived to the ER by private vehicle. The patient has a history of PTSD and bipolar disorder. She was recently admitted to the [facility] in [place] and was there for approximately 2 weeks. She was discharged about 3 days ago. She was prescribed her standard psychiatric medications but has not been able to fill these prescriptions at the pharmacy she was instructed to go to. She drove from [place] up to [place] because the pharmacist told her she could get good care here. She recently is not tied in with our system in [place]. She states that she has not taken her medications in 3 days. She denied suicidal and homicidal thoughts. The patient was admitted involuntarily on an M1 hold due to being gravely disabled due to not taking her medications as prescribed. The patient was admitted for safety crisis stabilization and medication management. ADMITTING DIAGNOSES: Bipolar I disorder with anxious distress. ADMISSION PHYSICAL EXAM: The patient was seen on 10/21/2017, for a hospitalist H & P consult. The patient was cleared for psychiatric inpatient hospitalization and psychiatric treatment. For further information regarding the admission physical exam, please see note dated 10/21/2017. ADMISSION LABS: CBC: Within normal limits except for red blood cells low at 3.84, hemoglobin low at 11.4, hematocrit low at 33.8, basophils low at 0.2. Chemistry/ test negative, all within normal limits except for carbon dioxide low at 17, anion gap elevated at 17. Toxicology was negative for all illicit substances and for ethyl alcohol. HOSPITAL COURSE: The most prominent symptoms and behaviors while the patient was hospitalized here were mood instability and anxiety. These symptoms were targeted during hospitalization with milieu and group therapy and with psychotropic medications. Psychotropic medications were tolerated with no report of side effects and with good response. The patient has improved considerably with no signs of psychiatric symptoms and no psychiatric symptoms expressed. The patient reports she has improved since her admission. States to be in stable condition, feels safe to discharge, and contracts for safety. The patient's response to treatment was good. There were no adverse or unexpected results of treatment. The patient was safe throughout her stay, active in treatment, engaged in groups, and was appropriate with staff. The treatment team's consensus is the patient is in stable condition and safe to discharge. CONDITION AT DISCHARGE: Patient is in stable condition and is no longer a danger to self or others, and is not gravely disabled due to mental illness. Patient is no longer in need of inpatient level of care, and can be safely and effectively treated within the community. The patients level of risk at time of discharge is low based on the risk assessment below following this discharge summary. MSE: The patient is casually dressed and with good hygiene, and looks stated age. Patient is sitting, posture is upright, and position is relaxed. Patient appears awake, alert, and responds appropriately and reasonably during interview. Patient is engaged, relates well to interviewer, and emotional facial expression is appropriate to situation and changes appropriately with topic. Patient is cooperative, makes comfortable eye contact, and movements are voluntary, deliberate, coordinated, and smooth and even with no inappropriate movements. Patient makes laryngeal sounds effortlessly and shares conversation appropriately; pace of conversation is appropriate, and stream of talking is fluent; articulation is clear and understandable; word choice is effortless and appropriate for education level; completes sentences, occasionally pausing to think; rate and volume are appropriate for interview and setting. Patient reports mood as euthymic. Patients affect is stable with full variable range, congruent with mood, and appropriate to speech and circumstances. Patient has linear and logical thinking, with no loose associations, tangential thought, thought blocking, concrete thinking, or any other signs of formal thought disorder. Patient denies suicidal and homicidal ideation, and denies hallucinations and delusions. Patient appears to be a reliable historian with sound judgement and good insight into current condition. Patient has no apparent dysfunction in recent or remote memory noted , and no evidence of gross cognitive dysfunction noted at any point during the interview. DISCHARGE DIAGNOSES: Bipolar I disorder with anxious distress. DISCHARGE MEDICATIONS: Zyrtec 10 mg p.o. daily, gabapentin 800 mg p.o. t.i.d., lidocaine 4% cream as needed, Latuda 80 mg p.o. daily, prazosin 2 mg p.o. q.h.s. , Topamax 100 mg p.o. b.i.d., trazodone 200 mg p.o. q.h.s., BuSpar 20 mg p.o. t.i.d., Claritin 10 mg p.o. daily, sumatriptan 50 mg as needed for migraines. The patient requested prescriptions for these medications for 30 days, and prescriptions were provided to the patient prior to her discharging. Prescriptions were reviewed with the patient. Medications were reviewed, and patient stated she had no questions regarding the prescriptions or the medications. DISPOSITION: The patient left the hospital independently and voluntarily today. FOLLOWUP: career coordinator reports the appropriate outpatient follow-up services have been established and outpatient appointments have been scheduled. The patient received written instructions with times and dates of outpatient follow-up appointments. The following follow-up recommendations were provided to the patient at discharge: Continue psychotropic medications as prescribed and attend appointments as scheduled. Report any side effects to a psychiatric outpatient provider, a primary care provider, or other health animal daycare provider. Address any questions or problems concerning the psychotropic medications with a psychiatric outpatient provider, a primary care provider, or other health animal daycare provider. Contact [facility] or [facility], or go to the nearest emergency room, if you are ever a danger to yourself/others, or unable to care for yourself. As soon as possible, establish a routine medication management treatment with a psychiatric provider, establish routine therapy appointments, and follow-up with a primary care provider. LEGAL COURSE: The patient was admitted on an M1 hold for an involuntary hospitalization. The patient was discharged voluntarily and independently today. ATTITUDE AT TIME OF DISCHARGE: The patient's attitude was positive at time of discharge. The patient reports looking forward to discharging today. The patient reports that she feels safe to discharge, is no longer a danger to herself or others, is in stable condition, and contracts for safety. The patient states she will continue medications as prescribed and establish medication management/treatment with an outpatient provider after discharge. The patient reports she understands the information that has been provided to her, and she understands, accepts, and agrees to psychotropic medications. The patient reports internal protective factors as the coping skills she has learned while hospitalized here, and she plans to continue to practice these coping skills after discharge. The patient reports external protective factors as her son. The patient describes looking forward to getting an MRI on her leg after discharge. 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 PENDING LABS: There were no pending labs or studies at time of discharge. ADVANCED DIRECTIVES: There were no advanced directives on file, and patient was full code during hospitalization. The following psychotropic medication treatment informed consent and recommendations were provided to the patient at time of discharge. Patient reports she understands, accepts, and agrees to the information that has been provided. PSYCHOTROPIC MEDICATION TREATMENT INFORMED CONSENT and RECOMMENDATIONS: Review nature of condition, diagnosis, and prognosis. Review nature and purpose of psychotropic medication treatment. Review type of psychotropic medications being prescribed. Review risk and benefits of psychotropic medication treatment. Review probable length of time will need to take medications. Review risk and benefits of not undergoing psychotropic medication treatment. Review alternative treatments to psychotropic medications. Review psychotropic medications contraindications, side effects, and importance of reporting any side effects to a psychiatric provider, primary care provider, or other health animal daycare provider. Review importance of her asking a psychiatric provider or primary care provider any questions or problems concerning the psychotropic medications. Review importance of reporting to a psychiatric provider, primary care provider, or other health animal daycare provider if she plans to or becomes . Review safety plan and the importance to contact [facility] or [facility] , or go to the nearest emergency room, if ever a danger to yourself/others, or unable to care for yourself. Recommend upon discharge to establish routine medication management treatment with a psychiatric provider, establish routine therapy appointments, and follow-up with a primary care provider. Verify patient understands, accepts, and agrees to the information that has been provided. SUICIDE ASSESSMENT FIVE-STEP EVALUATION AND TRIAGE (1) RISK FACTORS: (a) Suicidal behavior: 2009 by cutting wrists; April 2017 attempt by overdose ; patient reports no attempts since (b) Current/past psychiatric disorders: Bipolar I Disorder (c) Cooper symptoms: none (d) Family history: uncle in 2003 (e) Precipitants/Stressors/Interpersonal: none (f) Change in treatment: discharge from psychiatric hospital (g) Access to firearms: none (2) PROTECTIVE FACTORS: (a) Internal: coping skills (b) External: son and her goal to be a [employer] advocate (3) SUICIDAL INQUIRY: (a) Ideation: none at time of discharge and none since prior to her admission (b) Plan: none; and no plan prior to admission (c) Behaviors: none; has been safe on the unit and contacts for safety at discharge (d) Intent: none; reports no intent prior to discharge (4) RISK LEVEL: Low: modifiable risk factors, strong protective factors; reports no suicidal ideation or self-injurious ideation. Intervention: treatment plan to reduce symptoms: medications and therapy, provide emergency/ crisis numbers, follow-up plan. /[id number]/MODL MTDD
== END 2017-10-25 11:33 | disposition home or self-care (01) | DRG 885 ==
LOC: BBEH 22:55
PROVIDERS: ADMIT Psychiatry & Neurology Psychiatry; ATTEND Psychiatry & Neurology Psychiatry
DX: F31.89 Other bipolar disorder (principal); T43.506A Underdosing of unspecified antipsychotics and neuroleptics, initial encounter; F41.8 Other specified anxiety disorders; F43.10 Post-traumatic stress disorder, unspecified; I10 Essential (primary) hypertension; G43.909 Migraine, unspecified, not intractable, without status migrainosus; Z72.89 Other problems related to lifestyle
CPT/HCPCS: 80305; G0480

== ENCOUNTER 2017-10-25 12:16 | Emergency (ER) | payer OTHER ==
--- NOTE | 2017-10-25 13:22 | EDPHY ---
H & P Stated Complaint: r knee pain(has brace) Time Seen by Provider: 10/25/17 12:58 HPI/ROS: CHIEF COMPLAINT: Right knee pain HISTORY OF PRESENT ILLNESS: 42-year-old female with bipolar disorder presents with right knee pain. 1 week ago she was an inpatient at the [facility]. She slipped and fell on a wet floor and fell directly onto her right knee. She had x-rays of the right knee, tib-fib and ankle that were unremarkable. She was placed on crutches and in a knee brace. She presents today with multiple concerns, but mainly that her knee brace does not fit correctly. ROS: No numbness, weakness, bleeding, syncopal episode, other injury. - Personal History LMP (Females 10-55): Over 28 Days Ago Current Tetanus Diphtheria and Acellular Pertussis (TDAP): Yes - Medical/Surgical History Hx Asthma: No Hx Chronic Respiratory Disease: No Hx Diabetes: No Hx Cardiac Disease: No Hx Renal Disease: No Hx Cirrhosis: No Hx Alcoholism: No Hx HIV/AIDS: No Hx Splenectomy or Spleen Trauma: No Other PMH: Bipolar.PTSD, suicide attempts . - Social History Smoking Status: Never smoked - Physical Exam Exam: Alert and oriented, pleasant Extremities: Right knee-normal inspection, no tenderness, no joint effusion, range of motion without apparent pain, joint is stable; right leg-normal inspection-nontender; right ankle-normal inspection, no tenderness, no swelling , range of motion without pain Skin: Intact Neuro: Motor and sensory intact Vascular: Capillary refill brisk distally. Constitutional: Initial Vital Signs Temperature (C) 36.8 C 10/25/17 12:23 Heart Rate 84 10/25/17 12:23 Respiratory Rate 18 10/25/17 12:23 Blood Pressure 143/101 H 10/25/17 12:23 O2 Sat (%) 97 10/25/17 12:23 O2 Delivery Mode Room Air Allergies/Adverse Reactions: haloperidol [From Haldol] Allergy (Verified 10/25/17 12:23) lamotrigine [From Lamictal] Allergy (Verified 10/25/17 12:23) morphine Allergy (Verified 10/25/17 12:23) Home Medications: Medication Instructions Recorded Cetirizine [ZyrTEC 10 mg (*)] 10 mg PO DAILY 30 Days #30 tab 10/25/17 Gabapentin 800 mg PO TID 30 Days #90 tablet 10/25/17 Lidocaine [Lidocaine 4% cream] 30 gm TP PRN PRN 30 Days #1 10/25/17 cream.gm. Loratadine [Claritin 10 mg] 10 mg PO DAILY 30 Days #30 tablet 10/25/17 Lurasidone HCl [Latuda] 80 mg PO DAILY@18 30 Days #60 tab 10/25/17 Prazosin HCl [Minipress 1mg (*)] 2 mg PO HS 30 Days #60 cap 10/25/17 SUMAtriptan [Imitrex 50 MG (*)] 50 mg PO Q2H PRN 30 Days #30 tab 10/25/17 Topiramate [Topamax 100MG (*)] 100 mg PO BID 30 Days #60 tab 10/25/17 busPIRone [Buspar (*)] 20 mg PO TID 30 Days #180 tab 10/25/17 traZODone [traZODONE 100MG (*)] 200 mg PO HS 30 Days #60 tab 10/25/17 Medical Decision Making ED Course/Re-evaluation: This patient presents with multiple concerns after a minor injury 1 week ago. The knee brace was adjusted by the pipe organ technician. I do not feel that follow-up imaging is indicated. [facility] and [facility] with [facility] for further care. I have given her the contact information for the orthopedic surgeon decision science analyst as well. Departure - Departure Disposition: Home, Routine, Self-Care Clinical Impression: Right knee pain Qualifiers: Chronicity: acute Qualified Code(s): M25.561 - Pain in right knee Condition: Good Instructions: Knee Pain (ED) Additional Instructions: Take Tylenol 650 mg every 4 hours and/or Ibuprofen 600 mg every 8 hours with food as needed for pain. Apply ice for 30 minutes at a time; 2-3 times per day for the next 1-2 days. Keep your leg elevated whenever possible. Follow up with Orthopedics in 2-4 weeks if symptoms persist or worsening at which time they will evaluate and recommend with you if conservative management versus adjuvant therapy like further imaging is indicated. Referrals: NONE *PRIMARY CARE P,. [Primary Care Provider] - As per Instructions
[2017-10-25 13:44] VITALS: BP 132/87
== END 2017-10-25 13:44 | disposition home or self-care (01) ==
DX: M25.561 Pain in right knee (principal)